=== PATIENT | male | born 1990 | race Hispanic/Latino ===

== ENCOUNTER 2017-03-29 00:46 | Observation (INO) | payer SELFPAY ==
[~2017-03-29] VITALS: Ht 167.6 cm; Wt 90.2 kg
[~2017-03-29 00:46] MED LIST: BACTRIM DS1 TAB PO; ERY-TAB333 MG OR; LORTAB 5/3255 MG PO; LORTAB 7.57.5 MG PO; NAPROXEN375 MG OR; NO HOME MEDS; ULTRAM50 M1 OR
[2017-03-29 01:26] LABS: HEMATOCRIT 45.9 % (39.0-50.0); HEMOGLOBIN 16.2 g/dl (14.0-18.0); IMMATURE GRANULOCYTES 1.3 % (0.0-1.0); MEAN CELL VOLUME 91.4 fL CALC (80.0-100.0); MEAN CORPUSCULAR HGB 32.3 pG CALC (26.0-32.0); MEAN CORPUSCULAR HGB CONC 35.3 g/L CALC (32.0-36.0); NEUT# 6.21 thou/uL (1.82-7.42); RED BLOOD COUNT 5.02 mill/uL (4.70-6.10); RED CELL DISTRI WIDTH 12.7 % (11.5-15.5)
[2017-03-29 02:12] LABS: ALBUMIN 3.9 g/dL (3.2-5.0); ALKALINE PHOSPHATASE 60 u/l (38-126); AMYLASE 86 u/l (30-110); ANION GAP 16 (6-22 (CALC)); BILIRUBIN, TOTAL 0.2 mg/dL (0.0-1.4); BUN 11 mg/dL (9-20); BUN/CREATININE RATIO 14 (12-20 (CALC)); CALCIUM 8.2 mg/dL (8.4-10.2); CARBON DIOXIDE 21 mmol/l (22-30); CHLORIDE 111 mmol/l (95-108); CREATININE 0.8 mg/dL (0.7-1.3); GFR > 60 ML/MIN (>=60 (CALC)); GFR FOR AFR.AMER. > 60 ML/MIN (>=60 (CALC)); GLUCOSE 98 mg/dL (75-110); LIPASE 475 u/l (23-300); POTASSIUM 3.6 mmol/l (3.5-5.1); SGOT/AST 26 u/l (17-59); SGPT/ALT 64 u/l (21-72); SODIUM 145 mmol/l (137-146); TOTAL PROTEIN 6.6 g/dL (6.3-8.2)
[2017-03-29 02:38] LABS: URINE BILIRUBIN - DIPSTICK NEGATIVE (NEGATIVE); URINE BLOOD DIPSTICK TRACE-LYSED (NEGATIVE); URINE CLARITY CLEAR; URINE COLOR YELLOW; URINE GLUCOSE - DIPSTICK NEGATIVE (NEGATIVE); URINE KETONE NEGATIVE (NEGATIVE); URINE LEUK ESTERASE NEGATIVE (NEGATIVE); URINE NITRITE - DIPSTICK NEGATIVE (Negative); URINE PH 5.5 (4.5-8.0); URINE PROTEIN - DIPSTICK NEGATIVE (NEG-TRACE); URINE SPECIFIC GRAVITY >=1.030; URINE UROBILINOGEN - DIPSTICK 0.2 E.U./dL (0.2)
[2017-03-29 03:45] VITALS: BP 124/72
[2017-03-29 08:52] VITALS: BP 126/85
[2017-03-29 15:42] VITALS: BP 124/80
[2017-03-29 20:15] VITALS: BP 127/78
[2017-03-30 03:29] VITALS: BP 121/78
[2017-03-30 06:12] LABS: HEMATOCRIT 45.8 % (39.0-50.0); HEMOGLOBIN 15.9 g/dl (14.0-18.0); MEAN CELL VOLUME 92.2 fL CALC (80.0-100.0); MEAN CORPUSCULAR HGB CONC 34.7 g/L CALC (32.0-36.0); RED BLOOD COUNT 4.97 mill/uL (4.70-6.10); RED CELL DISTRI WIDTH 12.4 % (11.5-15.5)
[2017-03-30 06:16] LABS: ANION GAP 14 (6-22 (CALC)); BUN 10 mg/dL (9-20); BUN/CREATININE RATIO 14 (12-20 (CALC)); CALCIUM 9.3 mg/dL (8.4-10.2); CARBON DIOXIDE 24 mmol/l (22-30); CHLORIDE 105 mmol/l (95-108); CREATININE 0.7 mg/dL (0.7-1.3); GFR > 60 ML/MIN (>=60 (CALC)); GFR FOR AFR.AMER. > 60 ML/MIN (>=60 (CALC)); GLUCOSE 78 mg/dL (75-110); LIPASE 82 u/l (23-300); POTASSIUM 3.7 mmol/l (3.5-5.1); SODIUM 139 mmol/l (137-146)
[2017-03-30 07:49] VITALS: BP 154/89
[2017-03-30] MEDS ORDERED: IBUPROFEN600 MG PO (12:59)
[2017-03-30] MEDS ORDERED: BACLOFEN10 MG PO (12:59)
[2017-03-30] MEDS ORDERED: PEPCID20 MG PO (12:59)
== END 2017-03-30 14:49 | disposition home or self-care (01) | DRG 391 ==
LOC: ED 00:46 → ED-I 02:50 → ED 03:09 → MS2 03:10
PROVIDERS: Emergency Medicine; Internal Medicine; ADMIT Internal Medicine; ATTEND Internal Medicine
DX: R10.31 Right lower quadrant pain (principal); K85.90 Acute pancreatitis without necrosis or infection, unspecified; R10.11 Right upper quadrant pain; F10.129 Alcohol abuse with intoxication, unspecified; Y90.8 Blood alcohol level of 240 mg/100 ml or more; F17.210 Nicotine dependence, cigarettes, uncomplicated
CPT/HCPCS: G0378

== ENCOUNTER 2017-09-19 07:29 | Emergency (ER) | payer SELFPAY ==
[~2017-09-19] VITALS: Ht 167.6 cm; Wt 96.2 kg
[~2017-09-19 07:29] MED LIST changes: +BACLOFEN10 MG PO; +IBUPROFEN600 MG PO; +PEPCID20 MG PO
[2017-09-19 08:24] LABS: HEMATOCRIT 47.4 % (39.0-50.0); HEMOGLOBIN 16.5 g/dl (14.0-18.0); MEAN CELL VOLUME 91.7 fL CALC (80.0-100.0); MEAN CORPUSCULAR HGB 31.9 pG CALC (26.0-32.0); MEAN CORPUSCULAR HGB CONC 34.8 g/L CALC (32.0-36.0); NEUT# 5.76 thou/uL (1.82-7.42); RED BLOOD COUNT 5.17 mill/uL (4.70-6.10); RED CELL DISTRI WIDTH 12.2 % (11.5-15.5)
[2017-09-19 08:39] LABS: ALBUMIN 4.3 g/dL (3.2-5.0); ALKALINE PHOSPHATASE 65 u/l (38-126); AMYLASE 76 u/l (30-110); ANION GAP 18 (6-22 (CALC)); BILIRUBIN, TOTAL 0.3 mg/dL (0.0-1.4); BUN 13 mg/dL (9-20); BUN/CREATININE RATIO 18 (12-20 (CALC)); CARBON DIOXIDE 20 mmol/l (22-30); CHLORIDE 110 mmol/l (95-108); CREATININE 0.7 mg/dL (0.7-1.3); GFR > 60 ML/MIN (>=60 (CALC)); GFR FOR AFR.AMER. > 60 ML/MIN (>=60 (CALC)); LIPASE 106 u/l (23-300); POTASSIUM 4.5 mmol/l (3.5-5.1); SGOT/AST 54 u/l (17-59); SGPT/ALT 152 u/l (21-72); SODIUM 144 mmol/l (137-146); TOTAL PROTEIN 7.3 g/dL (6.3-8.2)
[2017-09-19 08:55] LABS: MYOGLOBIN 38 ng/mL (0 - 121)
[2017-09-19] MEDS ORDERED: ZOFRAN ODT4 MG PO (09:11)
[2017-09-19] MEDS ORDERED: NEXIUM40 M1 PO (09:11)
[2017-09-19 09:24] VITALS: BP 110/70
== END 2017-09-19 09:50 | disposition home or self-care (01) | DRG 392 ==
LOC: ED 07:29
PROVIDERS: Emergency Medicine
DX: R10.13 Epigastric pain (principal); F17.210 Nicotine dependence, cigarettes, uncomplicated; R11.2 Nausea with vomiting, unspecified

== ENCOUNTER 2020-07-24 20:04 | Emergency (ER) | payer SELFPAY ==
[~2020-07-24] VITALS: Ht 167.6 cm; Wt 118.2 kg
[~2020-07-24 20:04] MED LIST changes: +NEXIUM40 M1 PO; +ZOFRAN ODT4 MG PO
[2020-07-24] MEDS ORDERED: BACTRIM DS1 TAB PO (20:45)
[2020-07-24] MEDS ORDERED: KEFLEX500 MG PO (20:45)
[2020-07-24 21:20] VITALS: BP 137/77
== END 2020-07-24 21:20 | disposition home or self-care (01) | DRG 603 ==
LOC: ED 20:04
DX: L02.415 Cutaneous abscess of right lower limb (principal); F17.200 Nicotine dependence, unspecified, uncomplicated

== ENCOUNTER 2020-10-28 17:13 | Emergency (ER) | payer SELFPAY ==
[~2020-10-28] VITALS: Ht 170.2 cm; Wt 87.0 kg
[~2020-10-28 17:13] MED LIST changes: +KEFLEX500 MG PO
[2020-10-28 18:40] VITALS: BP 129/87
== END 2020-10-28 18:40 | disposition home or self-care (01) | DRG 866 ==
LOC: ED 17:13
DX: B34.9 Viral infection, unspecified (principal); F17.210 Nicotine dependence, cigarettes, uncomplicated; Z20.822 Contact with and (suspected) exposure to COVID-19